=== PATIENT | male | born 1985 | race Caucasian/White ===

== ENCOUNTER 2021-01-03 06:11 | Inpatient (IN) ==
--- NOTE | 2020-12-19 09:32 | PAT Medication Instructions ---
Medication Instructions Date of Service December 19, 2020 Home Medications albuterol sulfate 1 inh INHALATION QID PRN baclofen 10 mg PO HS buprenorphine-naloxone [Suboxone] 1 tab SUBLINGUAL BID cyclobenzaprine 10 mg PO TID PRN diclofenac sodium 75 mg PO BID PRN duloxetine [Cymbalta] 60 mg PO QAM multivitamin 1 tab PO QAM nicotine 1 patch TRANSDERMAL DAILY pantoprazole 40 mg PO BID valacyclovir [Valtrex] 500 mg PO QAM Continue as directed buprenorphine-naloxone [Suboxone] 1 tab SUBLINGUAL BID nicotine 1 patch TRANSDERMAL DAILY ASK your surgeon for instructions diclofenac sodium 75 mg PO BID PRN DO NOT take the morning of surgery cyclobenzaprine 10 mg PO TID PRN multivitamin 1 tab PO QAM Take morning of surgery With a small sip of water, OTHERWISE NOTHING TO EAT OR DRINK AFTER MIDNIGHT: albuterol sulfate 1 inh INHALATION QID PRN (use if needed; please bring with you to hospital day of surgery if possible) duloxetine [Cymbalta] 60 mg PO QAM pantoprazole 40 mg PO BID valacyclovir [Valtrex] 500 mg PO QAM Take evening before surgery albuterol sulfate 1 inh INHALATION QID PRN (if needed) baclofen 10 mg PO HS cyclobenzaprine 10 mg PO TID PRN (if needed) pantoprazole 40 mg PO BID Other Notes If you have any questions please call us at [phone] or [phone] or or [phone]
--- NOTE | 2020-12-20 11:28 | Anesthesiology Consultation ---
Date of Service December 20, 2020 Assessment & Plan (1) Encounter for pre-operative examination: Per assessment on 12/20: Travel screen negative. No known COVID-19 positive contacts or current COVID-19 related symptoms. Surgeon arranging preop COVID testing (scheduled 12/27; [facility]). Awaiting results. Chart Review Chart Review: Acceptable Risk for Surgery and Patient seen in Pre Admission Testing Teaching & Discussion Pre-Anesthesia Teaching/Discussion Notes: Instructed NPO after midnight before surgery,except medications with 15 cc of water. Medication instructions provided according to the PAT guidelines. History Surgery Operation Date: 01/03/21 10:05 Proposed Procedures p L5-S1 Decompression and Fuson, Spinal Cord Monitoring - Stu Traylor, Height/Weight Height: 5 ft 11 in Weight: 107.4 kg Allergies Allergy/AdvReac Type Severity Reaction Status Date / Time Pertussis Vaccines Allergy Hives Verified 12/15/20 10:46 gabapentin AdvReac Depression, Verified 12/15/20 10:46 "made me suicidal" phenytoin AdvReac Seizure Verified 12/15/20 10:46 tramadol [From Ultram] AdvReac Seizure Verified 12/15/20 10:46 Medications Home Medications Medication Instructions Recorded Confirmed Last Taken albuterol sulfate 1 inh INHALATION QID PRN 09/23/20 12/15/20 Unknown baclofen 10 mg PO HS 09/23/20 12/15/20 Unknown buprenorphine-naloxone [Suboxone] 1 tab SUBLINGUAL BID 09/23/20 12/15/20 Unknown cyclobenzaprine 10 mg PO TID PRN 09/23/20 12/15/20 Unknown diclofenac sodium 75 mg PO BID PRN 09/23/20 12/15/20 Unknown duloxetine [Cymbalta] 60 mg PO QAM 09/23/20 12/15/20 Unknown multivitamin 1 tab PO QAM 09/23/20 12/15/20 Unknown nicotine 1 patch TRANSDERMAL DAILY 09/23/20 12/15/20 Unknown pantoprazole 40 mg PO BID 09/23/20 12/15/20 Unknown valacyclovir [Valtrex] 500 mg PO QAM 09/23/20 12/15/20 Unknown Past Medical History Medical History Anxiety Asthma Depression Fatty liver GERD (gastroesophageal reflux disease) well controlled History of migraine headaches History of seizures during detox (2009) HTN (hypertension) previously on propranolol but discontinued d/t BP dropping too low, under surveillance by PCP Obesity Osteoarthritis PTSD (post-traumatic stress disorder) Spinal stenosis Exercise / Class Metabolic Activity II 4-5 Yardwork/Stairs/Walk up hill (one flight of stairs (no chest pain/no SOB)) Past Family History Family History Mother History of anesthesia reaction hypotension, bradycardia Past Surgical History Surgical History History of cholecystectomy History of colonoscopy History of esophagogastroduodenoscopy (EGD) History of fusion of cervical spine right sided restricted mobility Past Anesthesia History Other ("slow to wake"/post-op grogginess, no known hx of reintubation) Mother: perioperative hypotension + resulting in cardiac arrest History of PONV No Hx of PONV and No Hx of Motion Sickness Social History Smoking Status: Current every day smoker tobacco type: cigarettes Smoking cigarettes per day: 2-3 cigs/day (tobacco use x 20 years) Do You Dip or Chew Tobacco: No Hx Alcohol Use: No Hx Substance Use: Yes substance use type: marijuana (Rare use (once every few weeks)), crack/cocaine (Hx cocaine, Quit 10/2019- on suboxone) and opiates (hx opiate abuse- on Suboxone) Review of Systems Occasional snoring (hx of witnessed apnea)- no hx of sleep study. Patient denies chest pain, shortness of breath, dyspnea on exertion, fever, chills, cough, wheezing, palpitations. Physical Exam Vital Signs VITALS BP 148/92 P 101 TEMP 98.9 SP02 96%RA RESP 16 PHYSICAL Mildly decreased cervical extension 2/2 cervicalgia Full TMJ range of motion. TMD 3.5 finger breaths Mallampati Score 1 Dentition: upper front teeth, molars missing, poor dentition Lungs: clear throughout to auscultation Cardiac: regular rate and rhythm, no murmurs noted Spine: normal Carotid arteries: negative bruit Extremities: no edema Trimmed marquez- will trim/clean up further prior to surgery Testing Laboratory Results 12/20/20 11:47 12/20/20 11:47 PT 10.2 Seconds (9.0-12.0) 12/20/20 11:47 INR 1.0 (0.9-1.1) 12/20/20 11:47 APTT 28.0 Seconds (21.0-31.0) 12/20/20 11:47 Urine Color Dark Yellow 12/20/20 Unknown Urine Appearance Clear (Clear) 12/20/20 Unknown Urine pH 5.0 (4.5-7.5) 12/20/20 Unknown Ur Specific Fleming 1.038 (1.000-1.030) H 12/20/20 Unknown Urine Protein Trace (Negative) H 12/20/20 Unknown Urine Glucose (UA) Negative (Negative) 12/20/20 Unknown Urine Ketones Trace (Negative) H 12/20/20 Unknown Urine Nitrite Negative (Negative) 12/20/20 Unknown Ur Leukocyte Esterase Negative (Negative) 12/20/20 Unknown Urine WBC (Auto) 1-5 /hpf (0-5) 12/20/20 Unknown Urine RBC (Auto) 0-4 /hpf (0-4) 12/20/20 Unknown U Hyaline Cast (Auto) 1-5 /lpf (0-5) 12/20/20 Unknown U Epithel Cells (Auto) 0-5 /lpf (0-5) 12/20/20 Unknown Urine Bacteria (Auto) Negative (Negative) 12/20/20 Unknown Blood Type A Positive 12/20/20 11:47 Antibody Screen NEGATIVE 12/20/20 11:47 Electrocardiogram Date: 09/29/20 + NSR @ (81) Chest X-Ray Date: 09/29/20 Findings: + NAD
[2020-12-20 12:06] LABS: Basophils # (auto) 0.02 K/uL (0-0.2); Basophils % (auto) 0.2 %; Eosinophils # (auto) 0.07 K/uL (0-0.5); Eosinophils % (auto) 0.7 %; Hematocrit (blood only) 42.3 % (42-52); Hemoglobin 15.1 g/dL (14.0-18.0); Immature Granulocytes # (auto) 0.02 K/uL (0.00-0.02); Immature Granulocytes % (auto) 0.2 %; Lymphocytes # (auto) 1.85 K/uL (1.2-3.4); Lymphocytes % (auto) 18.7 %; Mean Corpuscular Hgb Conc 35.7 g/dL (32-36); Mean Corpuscular Volume 89.6 fL (80-100); Mean Platelet Volume 9.8 fL (7.4-10.4); Monocytes # (auto) 0.64 K/uL (0.11-0.59); Monocytes % (auto) 6.5 %; Neutrophils % (auto) 73.7 %; Platelet Count 238 K/uL (130-400); RDW Coefficient of Variation 13.1 % (11.5-14.5); RDW Standard Deviation 42.9 fL (36.4-46.3); Red Blood Count 4.72 M/uL (4.7-6.1)
[2020-12-20 12:16] LABS: Appearance Urine Clear (Clear); Bacteria Urine Automated Negative (Negative); Blood Urine Negative (Negative); Color Urine Dark Yellow; Epithelial Cell Urine Auto 0-5 /lpf (0-5); Glucose Urine UA Negative (Negative); Ketones Urine Trace (Negative); Leukocyte Esterase Urine Negative (Negative); Nitrite Urine Negative (Negative); Protein Urine Trace (Negative); RBC Urine Automated 0-4 /hpf (0-4); Specific Gravity Urine 1.038 (1.000-1.030); Urobilinogen Urine Negative (Negative)
[2020-12-20 12:23] LABS: Prothrombin Time 10.2 Seconds (9.0-12.0)
[2020-12-20 12:31] LABS: Bilirubin Urine 1+ (Negative)
[2020-12-20 13:07] LABS: BUN Creatinine Ratio 16.6 (10-20); Calcium 8.7 mg/dl (8.5-10.1); Est GFR (Non-African American) 88.8; Potassium 3.9 mmol/L (3.5-5.1)
[~2021-01-03 06:11] MED LIST: ACETAMINOPHEN 500 MG TAB PO SCH; CeleBREX 200 MG CAP PO SCH; GABAPENTIN 900 MG DOSE PO SCH; LR 15ML/HR IV SCH; ceFAZolin 2000MG 2,000 MG/15 ML SYR IV SCH
[2021-01-03] MEDS ORDERED: NEOSTIGMINE METHYLSULFATE 1 MG/ML 10ML VIAL ONE (06:35)
[2021-01-03] MEDS ORDERED: MIDAZOLAM HCL 1 MG/ML 2ML VIAL ONE (06:35)
[2021-01-03] MEDS ORDERED: PROPOFOL IV EMULSION 10 MG/ML 20 ML VIAL IV ONE (06:35)
[2021-01-03] MEDS ORDERED: ROCURONIUM BROMIDE 10 MG/ML 5 ML VIAL IV ONE (06:35)
[2021-01-03] MEDS ORDERED: HYDROmorphone INJ 2 MG/ML SYR/VIAL ONE (06:35)
[2021-01-03] MEDS ORDERED: DEXAMETHASONE SOD INJ 4 MG/ML VIAL ONE (06:35)
[2021-01-03] MEDS ORDERED: KETAMINE 50 MG/5 ML SYRINGE ONE (06:35)
[2021-01-03] MEDS ORDERED: SODIUM CHLORIDE 0.9% INJ 10 ML VIAL ONE (06:35)
[2021-01-03] MEDS ORDERED: GLYCOPYRROLATE 0.2 MG/ML VIAL ONE (06:35)
[2021-01-03] MEDS ORDERED: KETOROLAC 30 MG/ML VIAL ONE (06:35)
[2021-01-03] MEDS ORDERED: LIDOCAINE HCL 2% 2 ML VIAL/AMP(20MG/ML) INFIL ONE (06:35)
[2021-01-03] MEDS ORDERED: ONDANSETRON INJ 2 MG/ML 2 ML VIAL ONE (06:35)
[2021-01-03] MEDS ORDERED: BUPIVACAINE/EPINEPHRINE 0.5% MPF 1:200,000 30 ML VIAL ONE (07:14)
[2021-01-03] MEDS ORDERED: BACITRACIN INJ 50,000 UNIT VIAL ONE (07:14)
--- NOTE | 2021-01-03 07:37 | History & Physical Report ---
Date of Service January 03, 2021 Assessment & Plan (1) Neurogenic claudication due to lumbar spinal stenosis: Admission and Anticipated Discharge Date Admission Date: L5-S1 decompression fusion History of Present Illness Chief Complaint: Back and leg pain Primary Care Provider: Janneth Morataya This is a 35-year-old male who presents with chronic persistent back and leg pain. Failing course of nonoperative care is here for surgical invention. Allergies Allergy/AdvReac Type Severity Reaction Status Date / Time Pertussis Vaccines Allergy Hives Verified 01/03/21 06:42 gabapentin AdvReac Depression, Verified 01/03/21 06:42 "made me suicidal" phenytoin AdvReac Seizure Verified 01/03/21 06:42 tramadol [From Ultram] AdvReac Seizure Verified 01/03/21 06:42 Home Medications Medication Instructions Recorded Confirmed Type albuterol sulfate 1 inh INHALATION QID PRN 09/23/20 01/03/21 History baclofen 10 mg PO HS 09/23/20 01/03/21 History buprenorphine-naloxone [Suboxone] 1 tab SUBLINGUAL BID 09/23/20 01/03/21 History cyclobenzaprine 10 mg PO TID PRN 09/23/20 01/03/21 History diclofenac sodium 75 mg PO BID PRN 09/23/20 01/03/21 History duloxetine [Cymbalta] 90 mg PO QAM 09/23/20 01/03/21 History multivitamin 1 tab PO QAM 09/23/20 01/03/21 History nicotine 1 patch TRANSDERMAL DAILY 09/23/20 01/03/21 History pantoprazole 40 mg PO BID 09/23/20 01/03/21 History valacyclovir [Valtrex] 500 mg PO QAM 09/23/20 01/03/21 History propranolol 20 mg PO BID 01/03/21 01/03/21 History Past Med/Surg History Medical History Anxiety Asthma Depression Fatty liver GERD (gastroesophageal reflux disease) well controlled History of migraine headaches History of seizures during detox (2009) HTN (hypertension) previously on propranolol but discontinued d/t BP dropping too low, under surveillance by PCP Obesity Osteoarthritis PTSD (post-traumatic stress disorder) Spinal stenosis Surgical History History of cholecystectomy History of colonoscopy History of esophagogastroduodenoscopy (EGD) History of fusion of cervical spine right sided restricted mobility Family History Mother History of anesthesia reaction hypotension, bradycardia Social History Smoking Status: Current every day smoker Cigarettes Per Day: 2-3 cigs/day (tobacco use x 20 years); Second Hand Exposure: Yes; Do You Dip or Chew Tobacco: No; Tobacco Cessation Education Requested by Patient: No Hx Alcohol Use: No Hx Substance Use: Yes Substance Use Type Other:: stopped cocaine and opiates 10/2019 - on suboxone Preferred Language: Upper Sorbian Communication Ability: Effective Dependency Counselor Required: No Beliefs That Will Affect Care: None Current Living Situation: Significant Other Feels Safe at Home: Yes Safety Concerns: Feels Safe At This Time Assistive Devices: Glasses Assistive Devices Comment: walking stick prn Physical Exam Physical Exam: Patient is alert and oriented Heart regular rate and rhythm Lungs clear to auscultation Results & Data ([facility]) Vital Signs (Past 12 Hours) Vital Signs Temp Pulse Resp BP Pulse Ox 01/03/21 06:35 36.8 C 77 18 131/85 96
--- NOTE | 2021-01-03 07:37 | History & Physical Bridge Note ---
Date of Service January 03, 2021 History & Physical Bridge Note I have examined the patient, reviewed the History & Physical and in the interval since the performance of the History & Physical I have noted the following changes of clinical significance: no changes noted
[2021-01-03] MEDS ORDERED: FLOSEAL HEMOSTATIC MATRIX 10ML TOP ONE (08:17)
[2021-01-03] MEDS ORDERED: ATROPINE SULFATE 0.1 MG/ML 10ML SYR IV PRN (08:20)
[2021-01-03] MEDS ORDERED: ePHEDrine sulfate 50 MG/ML AMP IV PRN (08:20)
[2021-01-03] MEDS ORDERED: ONDANSETRON INJ 2 MG/ML 2 ML VIAL IV PRN ×2 (08:21→11:02)
[2021-01-03] MEDS ORDERED: PROMETHAZINE HCL 12.5 MG in SODIUM CHLORIDE 0.9% 50 ML IV PRN ×2 (08:21→11:02)
[2021-01-03] MEDS ORDERED: NALOXONE HCL 0.4 MG/1 ML VIAL/CARP IV PRN ×2 (08:21→11:02)
[2021-01-03] MEDS ORDERED: FLUMAZENIL 0.1 MG/1 ML 10 ML VIAL IV PRN (08:21)
[2021-01-03] MEDS ORDERED: ePHEDrine sulfate 50 MG/ML SYR ONE (09:09)
--- NOTE | 2021-01-03 09:22 | Operative Report ---
Post Operative Report Pre & Post Diagnosis Operation Date: 01/03/21 07:45 Pre-Op Diagnosis: Spinal Stenosis Lumbar region with Neurogenic Luna Post-Op Diagnosis: Spinal Stenosis Lumbar region with Neurogenic Luna I identified the patient and participated in the time-out.: Yes Procedure Operation Date: 01/03/21 07:45 Actual Procedures #1 decompression with bilateral medial facetectomies and foraminotomies L5-S1. #2 posterior spinal fusion L5-S1 peer #3 placement posterior instrumentation L5- S1. #4 interbody fusion L5-S1. #5 placement peek cage 12 x 26 mm L5-S1. #6 placement locally harvested morselized autograft in the posterior gutters. #7 placement use collagen sponge and master graft in the posterior gutters and osteopenic body space. Surgeon Stu Traylor, DO [facility] [employer] Victoria Oliver Estimated Blood Loss 75 Findings See Below The patient is 5 foot 11 inches tall weighing over 108 kg with a BMI in excess of 33. The patient's body habitus did add significant technical difficulty re quiring her deepest retractors longus instruments in order to perform his procedure this at least 50% increase to the operative time. Specimens None Indications This is a 35-year-old male who presents with above-mentioned diagnosis after failing course of nonoperative care is here for the dementia procedure. Description of Procedure Patient met with identified informed consent obtained. Patient was then taken to the operative suite underwent a patient placed in prone position Gerardo table total spine frame. All bony prominences well-padded eyes inspected to ensure no external pressure placed upon the. This point the lumbar spine was prepped and draped in a sterile fashion. Sharp dissection with the assistance of Bovie cautery performed down to and exposing the lamina and transverse processes of L5 and the sacral ala bilaterally. From caudal cephalad fashion complete laminectomy of L5 was performed occluding bilateral medial facetectomies and foraminotomies addressing all neural compression. There is evidence of a large disc protrusion with partial calcification on the right. After complete decompression pedicle screws were placed in L5 and S1 levels bilaterally with assistance of fluoroscopy the process alejandra placed. By way the transforaminal portion right a complete discectomy was performed endplates curetted to subcortical being bone and a 12 x 26 mm peek cage filled osteobone graft tapped in position. The rods were then locked in final position bilaterally. The transverse processes of L5 and sacral ala burred to subcortical bleeding bone. Infuse collagen sponge mass graft local autograft was placed in posterior gutters. 15 round JOHN drain inserted. Incision was then closed with 1 Vicryl to fascia 2-0 Vicryl subcutaneously and 4 Monocryl for final skin closure. Steri-Strip sterile dressings placed. Patient will continue PACU stable condition. Please note spinal cord monitoring was utilized that the procedure no changes noted. Lastly Victoria Oliver was present at the entire procedure involved the patient positioning complex portions of the procedure and final skin closure. I attest to the content of the Intraoperative Record and any orders documented therein. Any exceptions are noted below.
--- NOTE | 2021-01-03 09:55 | Fluoroscopy Report ---
FL lumbar spine 2-3V CLINICAL HISTORY: L5-S1 DECOMPRESSION AND FUSION COMPARISON STUDY: None. FLUOROSCOPY TIME: 19.9 seconds. FINDINGS: 2 fluoroscopic spot images of the lower lumbar spine demonstrate posterior decompression an d fusion at L5-S1 with pedicle screws and rods. The hardware appears intact. IMPRESSION: Fluoroscopy provided for L5-S1 posterior decompression and fusion ACT 112: Negative or not required by law. Electronically signed by: Geoff Graham M.D. 01/03/2021 9:54 AM
[2021-01-03] MEDS: fentaNYL citrate 100 MCG/2 ML VIAL IV PRN ×4 (10:02→10:18)
[2021-01-03] MEDS ORDERED: HYDROmorphone INJ 0.5 MG/0.5 ML SYR IV PRN ×2 (10:22→11:02)
[2021-01-03] MEDS ORDERED: HYDROmorphone INJ 1 MG/ML SYRINGE ONE (10:22)
--- NOTE | 2021-01-03 10:43 | Anesthesiology Progress Note ---
Date of Service January 03, 2021 Anesthesia Post Procedure Vital Signs Vital Signs: Temp Pulse Pulse Resp BP BP Pulse Ox 01/03/21 10:35 77 19 119/72 97 01/03/21 10:25 71 16 134/71 94 01/03/21 10:15 78 20 134/80 98 01/03/21 10:05 81 14 152/94 H 97 01/03/21 09:55 71 11 L 147/86 H 95 01/03/21 09:45 71 9 L 136/82 95 01/03/21 09:39 36.0 C L 67 20 140/77 94 01/03/21 06:35 36.8 C 77 18 131/85 96 Pain Intensity Lower Back: Pain Intensity: 7 Transfer of Care Handoff Completed per policy Notes Mental Status: alert / awake / arousable Patient Amnestic to Procedure: Yes Nausea / Vomiting: adequately controlled Pain: adequately controlled Airway Patency, RR, SpO2: stable & adequate BP & HR: stable & adequate Hydration State: stable & adequate Anesthetic Complications: no major complications apparent
[2021-01-03] MEDS ORDERED: MAGNESIUM HYDROXIDE SUSP 30 ML UDC PO PRN (11:02)
[2021-01-03] MEDS ORDERED: diphenhydrAMINE Capsule 25 MG CAP PO PRN (11:02)
[2021-01-03] MEDS ORDERED: DO NOT ADMINISTER FLU VACCINE PRN (11:02)
[2021-01-03] MEDS ORDERED: ACETAMINOPHEN 1,000 MG/100 ML VIAL IV PRN (11:02)
[2021-01-03] MEDS ORDERED: ALBUTEROL HFA 8 GM INHALER INH PRN (11:02)
[2021-01-03] MEDS ORDERED: LORazepam 0.5 MG TAB PO PRN (11:02)
[2021-01-03] MEDS ORDERED: HYDROmorphone INJ 1 MG/ML SYRINGE IV PRN (11:02)
[2021-01-03] MEDS ORDERED: ONDANSETRON 4 MG OD TAB PO PRN (11:02)
[2021-01-03] MEDS ORDERED: DO NOT ADMINISTER PNEUMOCOCCAL VACCINE PRN (11:02)
[2021-01-03] MEDS ORDERED: METOCLOPRAMIDE HCL INJ 5 MG/ML 2 ML VIAL IV PRN (11:02)
[2021-01-03] MEDS ORDERED: hydrOXYzine HCl 25 MG TAB PO PRN (11:02)
[2021-01-03] MEDS ORDERED: LORazepam 0.5 MG/1 ML VIAL IV PRN (11:02)
[2021-01-03] MEDS ORDERED: FAMOTIDINE 20 MG TAB PO PRN (11:02)
[2021-01-03] MEDS ORDERED: ALUMINUM/MAGNESIUM SUSP 30 ML UDC PO PRN (11:02)
[2021-01-03] MEDS ORDERED: ACETAMINOPHEN 500 MG TAB PO PRN (11:02)
[2021-01-03] MEDS ORDERED: SOD PHOSPHATE/SOD BIPHOSPHATE ENEMA 132 ML BTL PR PRN (11:02)
[2021-01-03] MEDS ORDERED: CYCLOBENZAPRINE HCL 10 MG TAB PO PRN (11:24)
[2021-01-03] MEDS: LACTATED RINGER'S 1,000 ML IV SCH ×3 (11:31→23:06)
[2021-01-03] MEDS: KETOROLAC 30 MG/ML VIAL IV SCH ×3 (11:52→23:19)
[2021-01-03] MEDS: ceFAZolin 2000MG 2,000 MG/15 ML SYR IV SCH ×2 (15:12→23:07)
[2021-01-03] MEDS ORDERED: Nursing to Pharmacy Communication SCH (17:00)
[2021-01-03] MEDS: BUPRENORPHINE/NALOXONE 8/2 MG TAB SL SCH (17:29)
[2021-01-03] MEDS: oxyCODONE HCL IR 5 MG TAB (IMMEDIATE RELEASE) PO PRN ×2 (19:10→23:23)
[2021-01-03] MEDS: NICOTINE 14 MG/24 HR PATCH TD SCH (20:05)
[2021-01-03] MEDS: DOCUSATE SODIUM/SENNA 50/8.6MG TAB PO SCH (20:58)
[2021-01-03] MEDS: PROPRANOLOL HCL 20 MG TAB PO SCH (20:59)
[2021-01-03] MEDS: BACLOFEN 10 MG TAB PO SCH (20:59)
[2021-01-03] MEDS: PANTOprazole 40 MG TAB PO SCH (20:59)
[2021-01-03] MEDS ORDERED: BUPRENORPHINE/NALOXONE 8/2 MG TAB SL SCH (21:00)
[2021-01-04] MEDS: KETOROLAC 30 MG/ML VIAL IV SCH (05:28)
[2021-01-04 06:05] LABS: Basophils # (auto) 0.01 K/uL (0-0.2); Basophils % (auto) 0.1 %; Hematocrit (blood only) 35.6 % (42-52); Hemoglobin 12.8 g/dL (14.0-18.0); Immature Granulocytes # (auto) 0.03 K/uL (0.00-0.02); Immature Granulocytes % (auto) 0.2 %; Lymphocytes # (auto) 1.39 K/uL (1.2-3.4); Lymphocytes % (auto) 9.3 %; Mean Corpuscular Hemoglobin 31.8 pg (25-34); Mean Corpuscular Volume 88.3 fL (80-100); Mean Platelet Volume 10.2 fL (7.4-10.4); Monocytes # (auto) 1.31 K/uL (0.11-0.59); Monocytes % (auto) 8.8 %; Neutrophils # (auto) 12.22 K/uL (1.4-6.5); Neutrophils % (auto) 81.6 %; Platelet Count 190 K/uL (130-400); RDW Coefficient of Variation 12.6 % (11.5-14.5); RDW Standard Deviation 40.8 fL (36.4-46.3); Red Blood Count 4.03 M/uL (4.7-6.1); White Blood Count 14.96 K/uL (4.8-10.8)
[2021-01-04 06:40] LABS: BUN Creatinine Ratio 15.1 (10-20); Calcium 8.4 mg/dl (8.5-10.1); Creatinine Clr Calc Pharmacy 137.7 ml/min; Est GFR (Non-African American) 105.2
[2021-01-04] MEDS: oxyCODONE HCL IR 5 MG TAB (IMMEDIATE RELEASE) PO PRN ×3 (07:45→19:43)
[2021-01-04] MEDS: BUPRENORPHINE/NALOXONE 8/2 MG TAB SL SCH ×2 (07:55→18:06)
[2021-01-04] MEDS: POLYETHYLENE (MIRALAX) 17 GM PACK PO SCH ×3 (08:55→18:06)
[2021-01-04] MEDS: PROPRANOLOL HCL 20 MG TAB PO SCH ×2 (08:55→21:49)
[2021-01-04] MEDS: PANTOprazole 40 MG TAB PO SCH ×2 (08:55→21:49)
[2021-01-04] MEDS: DULoxetine HCL 30 MG CAP PO SCH (08:55)
[2021-01-04] MEDS: NICOTINE 14 MG/24 HR PATCH TD SCH (09:25)
--- NOTE | 2021-01-04 11:25 | Orthopedic Progress Note ---
Date of Service January 04, 2021 Assessment & Plan (1) Neurogenic claudication due to lumbar spinal stenosis: Admission and Anticipated Discharge Date Admission Date: January 03, 2021 This time we will continue physical therapy monitor his JOHN operatively discharge home in the next few days. Subjective Patient's back pain is controlled leg symptoms markedly improved. Physical Exam Physical Exam: Patient is up and ambulating with strength testing. Results & Data ([facility]) Vital Signs (Past 12 Hours) Vital Signs Temp Pulse Pulse Resp BP BP Pulse Ox 01/04/21 07:51 36.8 C 77 16 124/79 97 01/04/21 03:42 36.7 C 76 18 113/55 L 97 01/03/21 23:56 36.6 C 69 18 126/76 98
[2021-01-04] MEDS ORDERED: BUPRENORPHINE/NALOXONE 8/2 MG TAB SL SCH (17:30)
[2021-01-04] MEDS ORDERED: Nursing to Pharmacy Communication SCH (18:45)
[2021-01-04] MEDS: DOCUSATE SODIUM/SENNA 50/8.6MG TAB PO SCH (20:15)
[2021-01-04] MEDS: BACLOFEN 10 MG TAB PO SCH (21:49)
[2021-01-05] MEDS: oxyCODONE HCL IR 5 MG TAB (IMMEDIATE RELEASE) PO PRN ×4 (00:15→21:47)
[2021-01-05] MEDS: BUPRENORPHINE/NALOXONE 8/2 MG TAB SL SCH ×2 (07:55→17:07)
--- NOTE | 2021-01-05 08:14 | Orthopedic Progress Note ---
Date of Service January 05, 2021 Assessment & Plan (1) Neurogenic claudication due to lumbar spinal stenosis: Admission and Anticipated Discharge Date Admission Date: January 03, 2021 This time we will continue physical therapy monitor his JOHN output anticipate d ischarge home tomorrow. Subjective Patient's leg pain is markedly improved. Struggling with significant back pain today. Physical Exam Physical Exam: Patient is good strength testing. He does appear uncomfortable. Results & Data ([facility]) Vital Signs (Past 12 Hours) Vital Signs Temp Pulse Pulse Resp BP BP Pulse Ox 01/05/21 07:08 37.1 C 81 16 122/72 96 01/05/21 00:00 36.6 C 73 18 116/67 97 01/04/21 21:46 81 125/72
[2021-01-05] MEDS: DULoxetine HCL 30 MG CAP PO SCH (08:48)
[2021-01-05] MEDS: PROPRANOLOL HCL 20 MG TAB PO SCH ×2 (08:49→20:33)
[2021-01-05] MEDS: NICOTINE 14 MG/24 HR PATCH TD SCH (08:49)
[2021-01-05] MEDS: PANTOprazole 40 MG TAB PO SCH ×2 (08:49→20:33)
[2021-01-05] MEDS: DEXAMETHASONE SOD PHOSPHATE 8 MG in SYRINGE 0 ML IV SCH (08:49)
[2021-01-05] MEDS ORDERED: bisacodyL 10 MG SUPP PR PRN (09:24)
[2021-01-05] MEDS: BACLOFEN 10 MG TAB PO SCH (20:33)
[2021-01-05] MEDS: DOCUSATE SODIUM/SENNA 50/8.6MG TAB PO SCH (20:33)
[2021-01-06] MEDS: oxyCODONE HCL IR 5 MG TAB (IMMEDIATE RELEASE) PO PRN ×2 (07:55→12:05)
[2021-01-06] MEDS: BUPRENORPHINE/NALOXONE 8/2 MG TAB SL SCH (07:56)
[2021-01-06] MEDS: PANTOprazole 40 MG TAB PO SCH (08:30)
[2021-01-06] MEDS: NICOTINE 14 MG/24 HR PATCH TD SCH (08:30)
[2021-01-06] MEDS: DEXAMETHASONE SOD PHOSPHATE 8 MG in SYRINGE 0 ML IV SCH (08:30)
[2021-01-06] MEDS: PROPRANOLOL HCL 20 MG TAB PO SCH (08:31)
[2021-01-06] MEDS: DULoxetine HCL 30 MG CAP PO SCH (08:31)
--- NOTE | 2021-01-06 12:37 | Discharge Summary ---
Date of Service January 06, 2021 Admission HPI Per Admitting Provider This is a 35-year-old male who presents with chronic persistent back and leg pain. Failing course of nonoperative care is here for surgical invention. Principal Diagnosis Lumbar spinal stenosis with radiculopathy Discharge Data Allergies Allergy/AdvReac Type Severity Reaction Status Date / Time Pertussis Vaccines Allergy Hives Verified 01/03/21 06:42 gabapentin AdvReac Depression, Verified 01/03/21 06:42 "made me suicidal" phenytoin AdvReac Seizure Verified 01/03/21 06:42 tramadol [From Ultram] AdvReac Seizure Verified 01/03/21 06:42 Consultations 01/03/21 11:02 Consult Case Management - Discharge Planning Routine Procedures Performed Operation Date: 01/03/21 07:45 Actual Procedures p L5-S1 Decompression and Fuson, Spinal Cord Monitoring(Not Applicable) - Stu Traylor DO Ordered Studies 01/03/21 07:45 FL fluoroscopy <1hr Routine FL lumbar spine 2-3V Routine Hospital Course (1) Neurogenic claudication due to lumbar spinal stenosis: 1 lumbar decompression fusion tolerated so was taken to orthopedic floor postoperative. Postop day 1 he was up and ambulating progressed to postop day 2. JOHN drain decreasing probably. Leg pain markedly improved. Subsequently postop day #3 he was discharged home. Patient had excellent strength testing was pain was well controlled. Discharge orders instructions from the chart for further review. Total Time Total Time Spent Total Time Spent (In Minutes): 20 minutes Discharge Plan Discharge Items Patient Disposition: Home - Self-Care Reason For Visit: Spinal Stenosis Lumbar region with Neurogenic Luna Discharge Diagnosis: Lumbar spinal stenosis with neurogenic claudication Activity: As commented below Non-emergency contact: Primary Care Provider Call non-emergency contact if: you have any medication questions Follow-up/Referrals: Janneth Morataya PA-C [Primary Care Provider] - Diet: Regular Addtl Attending Provider Instructions: ACTIVITY RECOMMENDATIONS: SELF CARE INSTRUCTIONS AFTER THORACIC/LUMBAR FUSIONS 1. You may walk to your tolerance. It is good exercise for your legs and back. Expect some back and intermittent leg aches and pains. 2. You may perform "counter-top" level activities (make a sandwich, bryant with a project, etc.). 3. No bending or lifting of more than 10 pounds or back twisting of any nature (roll like a log when turning in bed). 4. You may ride in a car for 20-30 minutes at a time. No driving until after your first visit with your doctor. 5. Frequent changes of position and restricting sitting to 30 minutes at a time will help limit the amount of back spasms and stiffness you may experience. 6. You may discontinue the use of ambulatory aids (cane, crutches, etc.) once your strength and confidence allow. 7. You may deputy brand inspector the shower and let water strike your incision when you arrive home at least once daily. Do not take a tub bath, sit in a hot tub or go into a swimming pool until after your first recheck in the office. SPECIAL CARE INSTRUCTIONS: VERY IMPORTANT TO READ AND REVIEW A. Your surgical incision has been closed with a cosmetic suture under the skin that will dissolve in about 6 weeks. In 14 days, you can use a pair of clean scissors and cut the suture that is left outside of the skin at the ends of your incision. 1. The small skin tapes can be removed 7 days after surgery if they have not fallen off by that point. 2. You may keep the wound open to air as much as possible to promote healing after post-op day number 5 unless told otherwise by your doctor. 3. If you think the wound looks like it is becoming infected (redness or worsening drainage) and/or you are experiencing fever, chill or worsening back pain and muscle spasms, contact the office so that we may evaluate you as soon as possible. B. Complications are uncommon, but please contact us if you have any signs or symptoms of: 1. wound infection (fever higher than 102.5 degrees F, redness, separation of wound, drainage, or increasing pain from the incision) 2. blood clots in legs (pain, swelling, redness and warmth in legs) 3. urinary tract infection (fever higher than 102.5 degrees F, burning upon urination or increased frequency of urination) 4. nerve problems (inability to walk on your toes or heels, numbness, loss of bowel or bladder control) 5. any other symptoms that concern you C. Please call the office at if you have any concerns or questions about your operation or recovery. D. No smoking! Smoking drastically decreases the chance of a solid fusion. E. Do not take any anti-inflammatory medications (Indocin, Advil, Motrin, Aspirin, Naprosyn, etc.) as these may inhibit the chance of a solid fusion. Tylenol is okay to take for pain. MANAGING PAIN AFTER SPINAL SURGERY 1. Narcotic medication is intended for short-term use and will be provided for surgical pain. Surgical pain usually lasts for a period of 4-6 weeks. Narcotic medication includes Percocet, Vicodin, Darvocet, Tylenol #3 or Lortab. 2. Longer-term pain is more appropriately treated with non-narcotic medication such as Tylenol ES. 3. Muscle spasm is not appropriately treated with narcotics. Muscle relaxers such as Soma, Flexeril or Skelaxin can be used along with Tylenol ES. 4. Remember that we all live with some "aches and pains". This is not unusual or uncommon after an injury or as we get older. a. Back pain is expected and may include muscle spasms for 4 to 6 weeks after surgery. The pain should gradually improve. If the pain worsens for no apparent reason, please contact the office. b. Intermittent leg pain may also be experienced and should not be concerned about unless it worsens for no apparent reason. If so, please contact the office. 5. We will provide appropriate medication within the normal guidelines of their prescribed use. We will also be very cautious and aware of potential abuse and extended duration of patients' medication needs. a. Pain medications are for your comfort and to assist with sleep and rest so that the tissue can heal. They are not provided in order to return to normal activity and should not be used through the day. To do so or worsening pain at night can result from ongoing tissue damage and development of tolerance to the prescribed medicine. 6. Please allow 2-3 days to process refills. Prescriptions will not be mailed but must be picked up at the office. FOLLOW UP VISIT: Keep your scheduled follow-up appointment. Any questions, please call the office at . Pending Studies at Discharge: No Stand-Alone Forms: My [facility], Opioid Pain Management, Smoking Cessation Medications and DC Order Prescriptions: New oxycodone 5 mg tablet 5 mg PO Q6H PRN (Reason: pain, severe) Qty: 30 RF: 0 Continued multivitamin Tablet 1 tab PO QAM RF: 0 cyclobenzaprine 10 mg Tablet 10 mg PO TID PRN (Reason: Muscle Spasm) RF: 0 valacyclovir [Valtrex] 500 mg Tablet 500 mg PO QAM RF: 0 baclofen 10 mg Tablet 10 mg PO HS RF: 0 pantoprazole 40 mg Tablet,Delayed Release (Dr/Ec) 40 mg PO BID RF: 0 buprenorphine-naloxone 8-2 mg Tablet, Sublingual 1 tab SUBLINGUAL BID RF: 0 duloxetine [Cymbalta] 60 mg Capsule,Delayed Release(Dr/Ec) 90 mg PO QAM RF: 0 albuterol sulfate 90 mcg/actuation Hfa Aerosol Inhaler 1 inh INHALATION QID PRN (Reason: sob) RF: 0 nicotine 7 mg/24 hr Patch 24 Hour 1 patch TRANSDERMAL DAILY RF: 0 propranolol 20 mg Tablet 20 mg PO BID RF: 0 Discontinued diclofenac sodium 75 mg Tablet,Delayed Release (Dr/Ec) 75 mg PO BID PRN (Reason: Pain) RF: 0 Discharge Orders: Discharge Order (Routine); Ordered 01/06/21 Ordered By: Stu Ayala/Other Patient Handouts: DVT Post Op Prevention, After Back Surgery: Going Home, Back Surg Daily Life Tips Admission Data Admit Date/Time: 01/03/21 09:42 Attending Provider: Stu Traylor Admit Provider: Stu Traylor Primary Care Provider: Janneth Morataya Other Interventions: Discharge Summary Assessment (RN) Last Done: 01/06/21 11:01
== END 2021-01-06 12:50 | disposition home or self-care (01) | DRG 454 ==
LOC: ASU 06:11 → 3E 09:42